=== PATIENT | female | born 1985 | race Two or more races ===

== ENCOUNTER 2019-08-19 20:58 | Inpatient (IN) | payer MEDICAID, MEDICARE ==
[~2019-08-19] VITALS: Ht 154.9 cm; Wt 81.6 kg
[2019-08-19] MEDS ORDERED: SODIUM CHLORIDE 0.9% 1,000 ML IV ONE (21:36)
[2019-08-19] MEDS ORDERED: ONDANSETRON HCL 4MG/2ML INJ IV STA (22:03)
[2019-08-19] MEDS ORDERED: MORPHINE SULFATE 4 MG/ML CPJ (NOT FOR IM USE) IV STA (22:03)
[2019-08-19] MEDS ORDERED: ASPIRIN 81MG TABLET PO ONE (22:15)
[2019-08-19] MEDS ORDERED: NITROGLYCERIN OINT 1GM/INCH UDPKT TD ONE (22:15)
[2019-08-19 22:25] LABS: BASOPHILS % 0.6 % (0.0-2.0); EOSINOPHILS % 1.6 % (0.0-5.0); HEMATOCRIT. 36.7 % (36.0-48.0); HEMOGLOBIN. 12.2 g/dL (12.0-16.0); LYMPHOCYTES % 23.8 % (20.0-50.0); MEAN CORPUSCULAR HEMOGLOBIN 28.1 pg (28.0-32.0); MEAN CORPUSCULAR VOLUME 84.3 fL (81.0-99.0); MONOCYTES % 7.4 % (2.0-8.0); NEUTROPHILS % 66.6 % (40.0-76.0); PLATELET 228 x1000/uL (130-400); RED BLOOD CELL COUNT 4.35 mill/uL (4.2-5.4)
[2019-08-19 22:30] LABS: CHLORIDE 109 mEq/L (98-107)
[2019-08-19 22:31] LABS: HCG SCREEN NEGATIVE
[2019-08-19 22:34] LABS: ETHANOL BLOOD < 10 mg/dL
[2019-08-19 22:42] LABS: *AMPHETAMINES SCREEN URINE NEGATIVE (NEGATIVE)
[2019-08-19 22:43] LABS: *BARBITURATES SCREEN URINE NEGATIVE (NEGATIVE); *BENZODIAZEPINES SCREEN URINE NEGATIVE (NEGATIVE); CANNABINOID URINE SCREEN NEGATIVE (NEGATIVE); METHADONE URINE SCREEN NEGATIVE (NEGATIVE); OPIATES URINE SCREEN NEGATIVE (NEGATIVE); PHENCYCLIDINE URINE SCREEN NEGATIVE (NEGATIVE)
[2019-08-19 22:51] LABS: *COCAINE SCREEN URINE NEGATIVE (NEGATIVE)
[2019-08-20] MEDS ORDERED: ACETAMINOPHEN 325MG TABLET PO PRN (03:30)
[2019-08-20 03:50] VITALS: BP 101/57
[2019-08-20] MEDS ORDERED: HYDROCODONE/ACETAMINOPHEN 5/325MG TABLET PO PRN (04:45)
[2019-08-20 08:00] VITALS: BP 116/73
[2019-08-20 08:58] LABS: CREATINE KINASE 57 IU/L (26-192)
[2019-08-20 08:59] LABS: CREATINE KINASE MB FRACTION < 1.0 ng/mL (0.5-3.6)
[2019-08-20] MEDS ORDERED: ASPIRIN 81MG TABLET PO SCH (09:00)
[2019-08-20] MEDS ORDERED: INFLUENZA VIRUS VACCINE(AFLURIA) 0.5ML SYR IM ONE (10:00)
[2019-08-20] MEDS ORDERED: REGADENOSON 0.4 MG/5 ML IV ONE ×2 (10:15→11:11)
[2019-08-20] MEDS ORDERED: IBUPROFEN 600MG TABLET PO ONE (11:30)
[2019-08-20 12:00] VITALS: BP 120/60
[2019-08-20 16:00] VITALS: BP 102/50
[2019-08-20] MEDS ORDERED: TRAM50TA94 MT (16:14)
[2019-08-20 16:45] VITALS: BP 102/50
[2019-08-20 16:55] LABS: CREATINE KINASE 61 IU/L (26-192)
[2019-08-20 16:56] LABS: CREATINE KINASE MB FRACTION < 1.0 ng/mL (0.5-3.6)
== END 2019-08-20 17:22 | disposition home or self-care (01) | DRG 203 ==
LOC: ER 20:58 → 8WST 23:45 → EDBEDREQ 23:49 → EDBEDREQTM 23:49 → ENRESERV 08-20 02:04
PROVIDERS: ADMIT Internal Medicine; ATTEND Internal Medicine
DX: M94.0 Chondrocostal junction syndrome [Tietze] (principal); E66.9 Obesity, unspecified; F41.9 Anxiety disorder, unspecified; E86.0 Dehydration; Z82.49 Family history of ischemic heart disease and other diseases of the circulatory system; Z68.34 Body mass index [BMI] 34.0-34.9, adult
CPT/HCPCS: 36415; 71045; 78452; 80305; 80320; 81025; 82550; 82553; 82962; 83880; 84484; 84703; 85379; 93005; 93017; 93306; 96361; 96374; 96375; 99285; A9500; J2270; J2405; J2785; J7030; G0480